=== PATIENT | female | born 1965 | race Caucasian/White ===

== ENCOUNTER → 2017-07-07 | Outpatient (CLI) | payer OTHER ==
[~2017-07-07] MED LIST: AUGMENTIN 875875 MG PO; BACTRIM DS TAB1 EACH PO; CIPROFLOXACIN500 M1 PO; HYDROCODON-ACE1 EACH PO; HYDROCODONE-AP1 EAC6 PO; KEFLEX500 MG PO; LYRICA 75 MG CA75 MG PO; MOBIC7.5 MG PO; NORCO 5-325 TA1 EACH PO; PYRIDIUM200 MG PO; TOPAMAX 25 MG T25 M1 PO; VITAMIN D400 UNI1; ZOFRAN ODT4 MG PO
== END ==
LOC: M.RAD 10:26
DX: M25.511 Pain in right shoulder (principal); M25.512 Pain in left shoulder; G89.29 Other chronic pain

== ENCOUNTER → 2019-03-13 | Outpatient (CLI) | payer OTHER | LOC: M.RAD 03-10 16:30 | DX: Z12.31 Encounter for screening mammogram for malignant neoplasm of breast (principal) ==

== ENCOUNTER → 2020-06-24 | Outpatient (CLI) | payer OTHER | LOC: M.RAD 15:32 | PROVIDERS: ATTEND Family Medicine | DX: Z12.31 Encounter for screening mammogram for malignant neoplasm of breast (principal); N64.89 Other specified disorders of breast ==